=== PATIENT | male | born 1970 | race Two or more races ===

== ENCOUNTER 2018-01-27 07:06 | Emergency (ER) | payer SELFPAY ==
[~2018-01-27] VITALS: Ht 170.2 cm; Wt 64.0 kg
[2018-01-27] MEDS ORDERED: SODIUM CHLORIDE 0.9% 1,000 ML IV ONE (07:56)
[2018-01-27] MEDS ORDERED: LORAZEPAM 2MG/ML CPJ IV ONE (08:30)
[2018-01-27 08:43] LABS: HEMATOCRIT. 46.4 % (42.0-52.0); HEMOGLOBIN. 16.2 g/dL (14.0-18.0); MEAN CORPUSCULAR HEMOGLOBIN 30.8 pg (28.0-32.0); MEAN CORPUSCULAR VOLUME 88.4 fL (80.0-94.0); MEAN PLATELET VOLUME 8.6 fl (7.4-10.4); PLATELET 256 x1000/uL (130-400); RED BLOOD CELL COUNT 5.25 mill/uL (4.7-6.1); RED CELL DISTRIBUTION WIDTH 13.4 % (11.6-14.6)
[2018-01-27 08:50] LABS: CHLORIDE 104 mEq/L (98-107)
[2018-01-27 08:54] LABS: ETHANOL BLOOD < 10 mg/dL
[2018-01-27 09:09] LABS: *AMPHETAMINES SCREEN URINE PRESUMTIVE POSITIVE (NEGATIVE); *BARBITURATES SCREEN URINE NEGATIVE (NEGATIVE); *BENZODIAZEPINES SCREEN URINE NEGATIVE (NEGATIVE); *COCAINE SCREEN URINE NEGATIVE (NEGATIVE); METHADONE URINE SCREEN NEGATIVE (NEGATIVE)
[2018-01-27 09:10] LABS: CANNABINOID URINE SCREEN NEGATIVE (NEGATIVE); OPIATES URINE SCREEN NEGATIVE (NEGATIVE); PHENCYCLIDINE URINE SCREEN NEGATIVE (NEGATIVE)
[2018-01-27 09:45] LABS: PLATELET ESTIMATE NORMAL
[2018-01-27 17:44] VITALS: BP 120/74
== END 2018-01-27 17:47 | disposition home or self-care (01) ==
LOC: ER 07:06
DX: R41.82 Altered mental status, unspecified (principal); F91.8 Other conduct disorders; F15.10 Other stimulant abuse, uncomplicated; F11.10 Opioid abuse, uncomplicated; R45.1 Restlessness and agitation; Z78.1 Physical restraint status; F14.10 Cocaine abuse, uncomplicated; F12.10 Cannabis abuse, uncomplicated; F17.210 Nicotine dependence, cigarettes, uncomplicated
CPT/HCPCS: 36415; 51702; 80048; 80305; 85025; 96361; 96374; 99285; G0482; J2060; J7030; Z7610